=== PATIENT | male | born 1970 ===

== ENCOUNTER 2018-06-07 17:15 | Emergency (ER) | payer OTHER ==
[2018-06-07 17:16] VITALS: BMI 28.8
[2018-06-07 18:25] LABS: BASO % 0.4 % (0.0-2.0); EOS % 0.2 % (0.0-4.0); HEMOGLOBIN 14.5 g/dL (12.0-18.0); LYMPH # 1.5 K/uL (1.0-4.3); MEAN CORPUSCULAR HEMOGLOBIN 32.5 pg (27.0-31.0); MEAN PLATELET VOLUME 8.1 fL (7.2-11.7); MONO # 0.5 K/uL (0.0-0.8); MONO % 4.9 % (0.0-10.0); NEUT # 7.5 K/uL (1.8-7.0); NEUT % 78.5 % (50.0-75.0); NRBC % 0.1 % (0.0-2.0); RBC 4.46 Mil/uL (4.40-5.90); RED CELL DISTRIBUTION WIDTH 13.4 % (11.5-14.5); WHITE BLOOD COUNT 9.6 K/uL (4.8-10.8)
--- NOTE | 2018-06-07 18:30 | C.PDOC ---
History Of Present Illness 48 year old male presents to the ER with a complaint of fever, chills, incomplete bladder emptying, and discomfort when starting and stopping urinary stream. Denies Hx of STD, or hematuria. Time Seen by Provider: 06/07/18 18:27 Chief Complaint (Nursing): Fever History Per: Patient History/Exam Limitations: no limitations Current Symptoms Are (Timing): Still Present Location Of Pain: None Sick Contacts (Context): None Associated Symptoms: Fever, Chills, Other (Difficulty emptying bladder, discomfort with starting and stopping urinary stream) Recent travel outside of the [place]: No Past Medical History Reviewed: Historical Data, Nursing Documentation, Vital Signs Vital Signs: Last Vital Signs Temp 98.9 F 06/07/18 23:16 Pulse 70 06/07/18 23:16 Resp 20 06/07/18 23:16 BP 112/71 06/07/18 23:16 Pulse Ox 99 06/07/18 23:16 Surgical History: Appendectomy Family History: States: Unknown Family Hx - Social History Hx Alcohol Use: No Hx Substance Use: No Review Of Systems Constitutional: Positive for: Fever, Chills Cardiovascular: Negative for: Chest Pain, Palpitations Respiratory: Negative for: Cough, Shortness of Breath Gastrointestinal: Negative for: Nausea, Vomiting Genitourinary: Positive for: Other (Incomplete bladder emptying, discomfort with starting and stopping urinary stream) Skin: Negative for: Rash Physical Exam - Physical Exam Appears: Non-toxic Skin: Normal Color, Warm, Dry Head: Atraumatic, Normacephalic Eye(s): bilateral: Normal Inspection Oral Mucosa: Moist Chest: Symmetrical, No Tenderness Cardiovascular: Rhythm Regular Respiratory: Normal Breath Sounds, No Rales, No Rhonchi, No Wheezing Gastrointestinal/Abdominal: Soft, No Tenderness Rectal: Deferred Back: No CVA Tenderness Neurological/Psych: Oriented x3, Normal Speech ED Course And Treatment - Laboratory Results Result Diagrams: 06/07/18 18:20 06/07/18 18:20 O2 Sat by Pulse Oximetry: 98 - CT Scan/US CT abd/pel Other Rad Studies (CT/US): Read By Radiologist, Radiology Report Reviewed CT/US Interpretation: IMPRESSION: Findings concerning for acute prostatitis likely be associated seminal vesiculitis. No drainable. abscess or soft tissue gas, no masses are seen. No evidence for bowel herniation, bowel obstruction, colitis, appendicitis or diverticulitis. No gross ureteral stone or obstructive uropathy is visualized. No abnormalities of the bladder and. kidneys. Progress Note: cipro and flomax PO Reevaluation Time: 22:40 Reassessment Condition: Improved Medical Decision Making Medical Decision Making: prostatitis cipro flomax started for urinary hesitancy/mild retention. no stone required at this time. Disposition Doctor Will See Patient In The: Office Counseled Patient/Family Regarding: Studies Performed, Diagnosis - Disposition Referrals: Srinivasa Gil MD [Staff Provider] - Disposition: HOME/ ROUTINE Disposition Time: 22:41 Condition: GOOD Additional Instructions: Cipro 500 mg (antibiotico) 2 veces al carleen por CUATRO SEMANAS Flomax 0.4 mg (baja tamano de la prostata) diario por [address] Loving- Urologo- kiko semana para seguir healy evaluacion. De de tener relaciones sexuales hasta la infeccion' esta resuelto. Prescriptions: Ciprofloxacin [Cipro] 1 tab PO BID #28 tab Tamsulosin [Flomax] 0.4 mg PO DAILY #30 cap Instructions: Prostatitis Forms: [employer] (Guyanese) Print Language: TUNISIAN - Clinical Impression Clinical Impression: Fever, Abdominal pain - Scribe Statement The provider has reviewed the documentation as recorded by the Scribalda Beltran All medical record entries made by the Scribe were at my direction and personally dictated by me. I have reviewed the chart and agree that the record accurately reflects my personal performance of the history, physical exam, medical decision making, and the department course for this patient. I have also personally directed, reviewed, and agree with the discharge instructions and disposition.
[2018-06-07] MEDS ORDERED: cefTRIAXone IV 1 gm in Dextros 50 ML IV ONE (18:31)
[2018-06-07] MEDS ORDERED: Sodium Chloride 0.9% 1,000 ML IV ONE (18:31)
[2018-06-07 18:38] LABS: ALB/GLOB RATIO 1.4 (1.0-2.1); ALBUMIN 4.5 g/dL (3.5-5.0); ALT/SGPT 75 U/L (21-72); AST/SGOT 111 U/L (17-59); BLOOD UREA NITROGEN 9 mg/dL (9-20); CALCIUM 8.9 mg/dl (8.6-10.4); GFR AFRICAN-AMERICAN > 60; GFR NON-AFRICAN AMERICAN > 60
[2018-06-07] MEDS ORDERED: Sodium Chloride 0.9% 1,000 ML ONE (18:47)
[2018-06-07] MEDS ORDERED: cefTRIAXone IV 1 gm in Dextros 50 ML IVPB ONE (18:47)
[2018-06-07 19:23] LABS: SQUAMOUS EPITHIAL < 1 /hpf (0-5); URINE BACTERIA RARE (<OCC); URINE BILIRUBIN NEGATIVE (NEGATIVE); URINE BLOOD NEGATIVE (NEGATIVE); URINE CLARITY Clear (Clear); URINE COLOR Yellow (YELLOW); URINE GLUCOSE (UA) NORMAL (Normal); URINE LEUKOCYTE ESTERASE NEG Leu/uL (Negative); URINE PROTEIN 1+ mg/dL (NEGATIVE); URINE UROBILINOGEN NORMAL mg/dL (0.2-1.0)
[2018-06-07] MEDS ORDERED: Iodixanol 320 MG/ML 100 ML BOTTLE IV ONE (20:54)
[2018-06-07 23:17] VITALS: BP 112/71; PULSE 70; RESP 20; TEMP 98.9
[2018-06-08 00:19] VITALS: O2SAT 98
--- NOTE | 2018-06-08 07:22 | CT ---
Date of service: 06/07/2018 PROCEDURE: CT Abdomen and Pelvis with intravenous contrast HISTORY: Abdominal pain, fever, no urinary tract infection COMPARISON: None. TECHNIQUE: Multiple contiguous axial images were performed through the abdomen and pelvis with the use of intravenous contrast. Subsequently, sagittal and coronal reformatted images were obtained. Radiation dose: Total exam DLP = 472 mGy-cm. This CT exam was performed using one or more of the following dose reduction techniques: Automated exposure control, adjustment of the mA and/or kV according to patient size, and/or use of iterative reconstruction technique. FINDINGS: LOWER THORAX: 3 millimeter nodular density at the right lung base posteriorly best seen on series 5, image 29 suggestive for a partially calcified nodule. LIVER: Unremarkable. No gross lesion or ductal dilatation. GALLBLADDER AND BILE DUCTS: Unremarkable. PANCREAS: Unremarkable. No gross lesion or ductal dilatation. SPLEEN: Unremarkable. ADRENALS: Unremarkable. No mass. KIDNEYS AND URETERS: Unremarkable. No hydronephrosis. No solid mass. VASCULATURE: Atherosclerotic calcification within the aorta. BOWEL: Unremarkable. No obstruction. No gross mural thickening. APPENDIX: No findings to suggest acute appendicitis. PERITONEUM: Unremarkable. No free fluid. No free air. LYMPH NODES: Unremarkable. No enlarged lymph nodes. BLADDER: Unremarkable. REPRODUCTIVE: Prostate is enlarged and slightly edematous and heterogeneous. Seminal vesicles appear also slightly prominent with adjacent inflammation. BONES: Degenerative changes in the spine. Suggestion of possible posterior disc bulges. Correlation with MRI may be helpful if clinically indicated. OTHER FINDINGS: Fat containing left inguinal hernia. Impression: Findings concerning for acute prostatitis likely associated with seminal vesiculitis. Clinical correlation. Additional findings as above. These findings were preliminarily reported at 9:47 p.m. on 06/07/[address] Dann Montemayor from [employer].
== END 2018-06-07 23:18 | disposition home or self-care (01) ==
LOC: C.ER 17:15
DX: R50.9 Fever, unspecified (principal); R10.9 Unspecified abdominal pain
CPT/HCPCS: 74177; 80053; 81001; 85025; 87040; 87086; 96361; 96374; 96375; 99285; J0696; J1885; J7030; Q9967

== ENCOUNTER 2018-12-22 15:58 | Outpatient (CLI) | payer OTHER | END 2018-12-22 15:59 | disposition home or self-care (01) | LOC: C.USIC 15:58 ==

== ENCOUNTER 2018-12-26 10:40 | Outpatient (CLI) | payer OTHER | END 2018-12-26 10:41 | disposition home or self-care (01) | LOC: C.USIC 10:41 | DX: R35.1 Nocturia (principal) ==